=== PATIENT | male | born 1960 | race Caucasian/White ===

== ENCOUNTER 2017-06-27 16:39 | Outpatient (CLI) | payer OTHER ==
--- NOTE | 2017-06-28 16:03 | XRAY Report ---
EXAM: LEFT FOOT RADIOGRAPHY EXAM DATE: 06/27/2017 05:04 PM. CLINICAL HISTORY: PAIN IN LEFT ANKLE AND JOINTS OF LEFT FOOT. Left foot pain for 2 weeks after fall. COMPARISON: Left ankle radiographs 06/27/2017. TECHNIQUE: 3 nonweightbearing views. FINDINGS: Bones: Normal mineralization. No bone lesions. There is a large posterior talar process with a subtle vertically oriented lucent line, suspicious for a nondisplaced fracture of the posterior talar proce ss. A partially fused os trigonum could have a similar appearance. The remainder of the visualized denise beth of the foot appear intact. There is a tiny calcaneal plantar spur and mild enthesophyte formation at the Achilles tendon insertion on the posterior calcaneus. Joints: No subluxation or dislocation. There is mild degenerative joint change at the interphalangeal joint of the great toe. Soft Tissues: Normal. No soft tissue swelling. IMPRESSION: Large posterior talar process with a subtle vertically oriented lucent line, suspicious f or a nondisplaced fracture. A partially fused os trigonum could have a similar appearance. [facility] Referring Provider Line: [phone] SITE ID: [id number]
--- NOTE | 2017-06-28 16:08 | XRAY Report ---
EXAM: LEFT ANKLE RADIOGRAPHY EXAM DATE: 06/27/2017 05:03 PM. CLINICAL HISTORY: PAIN IN LEFT ANKLE AND JOINTS OF LEFT FOOT. Left ankle pain x2 weeks after fall. COMPARISON: Left foot radiographs 06/27/2017. TECHNIQUE: 3 nonweightbearing views. FINDINGS: Bones: Normal mineralization. As seen on foot radiographs, there is a large posterior talar process o r partially fused os trigonum. There is a subtle vertically oriented lucent line, which may represent a posterior process fracture or partial fusion of an os trigonum. The remainder of the visualized denise beth appear intact. Joints: Normal. No effusion. No subluxations. The ankle mortise is normally aligned. Soft Tissues: Normal. No soft tissue swelling. IMPRESSION: Large posterior talar process with a subtle vertically oriented lucent line which may rep resent a nondisplaced fracture. A partially fused os trigonum could have a similar appearance. [facility] Referring Provider Line: [phone] SITE ID: [id number]
== END 2017-06-27 16:40 | disposition home or self-care (01) ==
LOC: DI 16:39
PROVIDERS: ATTEND Family Medicine
DX: M25.572 Pain in left ankle and joints of left foot (principal)

== ENCOUNTER 2018-10-01 07:49 | Outpatient (CLI) | payer BC ==
--- NOTE | 2018-10-01 10:25 | XRAY Report ---
Reason: PAIN IN RIGHT KNEE Procedure Date: 10/01/2018 Accession Number: [id number] / [id number] Procedure: XR - Knee 3 View RT CPT Code: FULL RESULT: EXAM: RIGHT KNEE RADIOGRAPHY EXAM DATE: 10/01/2018 08:02 AM. CLINICAL HISTORY: Pain in right knee. COMPARISON: None. TECHNIQUE: 3 views. FINDINGS: Bones: There is spurring along the tibial insertion of the patellar tendon. No fractures or bone lesions. Joints: Normal. No effusion. No subluxations. Soft Tissues: Seen on the AP view only along the lateral tibial metadiaphysis is a 3.4 cm long and 0.5 cm thick soft tissue density without associated calcifications or definite periosteal reaction. IMPRESSION: Spurring along the tibial insertion of the patella tendon. Soft tissue density along the tibial metadiaphysis as described. Significance of this finding is unclear. [facility]
== END 2018-10-01 07:50 | disposition home or self-care (01) ==
LOC: DI 07:49
PROVIDERS: ATTEND Family Medicine
DX: M25.561 Pain in right knee (principal)